=== PATIENT | female | born 1990 | race Hispanic/Latino ===

== ENCOUNTER → 2022-11-29 | Day surgery (SDC) | payer OTHER, SELFPAY ==
[~2022-11-29] MED LIST: Acetaminophen 500 MG TAB ONE; Iron Sucrose Complex 500 MG in Sodium Chloride 0.9% 250 ML 250 ML IVPB SCH
== END ==
LOC: CSHSDC/OP 08:51
PROVIDERS: ATTEND Obstetrics & Gynecology
DX: O99.019 Anemia complicating pregnancy, unspecified trimester (principal); D64.9 Anemia, unspecified
CPT/HCPCS: J1756; J7050

== ENCOUNTER 2022-12-12 08:40 | Inpatient (IN) | payer MEDICAID, OTHER ==
[2022-12-11 13:05] LABS: Hemoglobin 10.9 g/dL (12.0-15.5); Platelet Count 294 10x3/uL (150-450)
[2022-12-11 13:30] LABS: SARS-CoV-2 NAA Rapid Test Not Detected (NotDetected)
[2022-12-11 13:38] LABS: HBSAg Index 0.14 S/CO (0-0.99); Hep B Surf Ag Non-Reactive S/CO (NonReactive); Syphilis Antibody Nonreactive (Nonreactive); Syphilis Antibody Index 0.06 S/CO (<1.00 Non-Reactive)
[2022-12-12 11:18] VITALS: BMI 30.7
[2022-12-12] MEDS ORDERED: Fentanyl 100 MCG/2 ML VIAL SLOW IVP PRN (11:34)
[2022-12-12] MEDS ORDERED: Ondansetron PF 4 MG/2 ML Vial IVP PRN ×3 (11:34→15:21)
[2022-12-12] MEDS ORDERED: Promethazine HCl 25 MG SUPP PR PRN (11:34)
[2022-12-12] MEDS ORDERED: Naloxone HCl 0.4 mg/ml Vial IV PRN (11:34)
[2022-12-12] MEDS ORDERED: Meperidine HCl/PF 25 MG/ML VIAL SLOW IVP PRN (11:34)
[2022-12-12] MEDS ORDERED: Moisturizing Cream (Eucerin) 113 GM JAR TOP PRN (11:34)
[2022-12-12] MEDS ORDERED: Ondansetron HCl/PF 4 MG/2 ML Vial IVP PRN (11:34)
[2022-12-12] MEDS ORDERED: diphenhydrAMINE 50 MG/ML VIAL IVP PRN (11:34)
[2022-12-12] MEDS ORDERED: Naloxone HCl 0.4 mg/ml Vial IVP PRN ×2 (11:34)
[2022-12-12] MEDS ORDERED: Promethazine HCl 25 MG/ML VIAL IM PRN ×2 (11:34→11:41)
[2022-12-12] MEDS ORDERED: Tranexamic Acid 1,000 MG in Sodium Chloride 0.9% 250 ML 250 ML IVPB PRN (11:41)
[2022-12-12] MEDS ORDERED: hydrALAZINE 20 MG/ML VIAL SLOW IVP PRN ×2 (11:41→15:21)
[2022-12-12] MEDS ORDERED: Misoprostol 200 MCG TAB PR PRN (11:41)
[2022-12-12] MEDS ORDERED: Famotidine/PF 20 mg/2ml Vial SLOW IVP PRN (11:41)
[2022-12-12] MEDS ORDERED: Bicitra 30 ML UDCUP PO PRN (11:41)
[2022-12-12] MEDS ORDERED: Carboprost 250 MCG/ML AMP IM PRN (11:41)
[2022-12-12] MEDS ORDERED: NS w/ Oxytocin 30 units 500 ML IV SCH (11:45)
[2022-12-12] MEDS ORDERED: Lactated Ringer's 1,000 ML IV SCH (11:45)
[2022-12-12] MEDS ORDERED: CEFAZOLIN 2 GM in Sodium Chloride 0.9% 100 ML IVPB SCH (11:45)
[2022-12-12] MEDS ORDERED: Communication Order-Pharmacy FS SCH (11:45)
[2022-12-12] MEDS ORDERED: ePHEDrine Sulfate 50 MG/10 ML VIAL ONE (11:49)
[2022-12-12] MEDS ORDERED: PHENYLEPHRINE-NS 100 MCG/ML 10 ML SYRINGE ONE (11:49)
[2022-12-12] MEDS ORDERED: Morphine PF 10 MG/10 ML VIAL ONE (11:49)
[2022-12-12] MEDS ORDERED: Oxytocin 10 UNITS/ML VIAL ONE (11:49)
[2022-12-12] MEDS ORDERED: Ondansetron PF 4 MG/2 ML Vial ONE (11:49)
[2022-12-12] MEDS ORDERED: Phenylephrine 40 MG/NS 250 ML 250 ML ONE (11:54)
[2022-12-12] MEDS ORDERED: Ketorolac Tromethamine 30 MG/ML VIAL ONE (11:54)
[2022-12-12] MEDS ORDERED: PROPOFOL 0 ML ONE (12:49)
[2022-12-12] MEDS ORDERED: Fentanyl 100 MCG/2 ML VIAL ONE (13:25)
[2022-12-12] MEDS ORDERED: Lidocaine 1% PF 5 ML VIAL ONE (13:26)
[2022-12-12] MEDS ORDERED: diphenhydrAMINE 25 MG CAP PO PRN (15:21)
[2022-12-12] MEDS ORDERED: Boostrix 0.5 ML (Tdap) VIAL (>/=7 yrs of age) IM ONE (15:21)
[2022-12-12] MEDS ORDERED: Lanolin Ointment 7 GM TUBE TOP PRN (15:21)
[2022-12-12] MEDS ORDERED: Ketorolac Tromethamine 30 MG/ML VIAL IVP SCH (17:30)
[2022-12-12] MEDS ORDERED: Ketorolac Tromethamine 30 MG/ML VIAL IVP PRN (17:30)
[2022-12-12] MEDS: Docusate 100 MG CAP PO SCH (21:00)
[2022-12-12] MEDS: Ferrous Sulfate 325 MG TAB PO SCH (21:00)
[2022-12-12] MEDS ORDERED: HYDROcodone/Acetaminophen 5/325 mg Tablet PO PRN (23:45)
[2022-12-13 04:34] LABS: Hemoglobin 9.1 g/dL (12.0-15.5); Mean Corpuscular Hemoglobin 27.2 pg (27.0-33.0); Mean Corpuscular Volume 84.8 fl (81.6-98.3); Mean Platelet Volume 11.7 fl (7.4-10.4); Platelet Count 220 10x3/uL (150-450); Red Blood Cell (RBC) Count 3.35 10x6/uL (3.90-5.03); White Blood Cell (WBC) Count 13.3 10x3/uL (3.5-10.5)
[2022-12-13] MEDS: Prenatal Vitamin 1 TAB PO SCH (09:19)
[2022-12-13] MEDS: Docusate 100 MG CAP PO SCH ×2 (09:19→21:26)
[2022-12-13] MEDS: Ferrous Sulfate 325 MG TAB PO SCH ×2 (09:19→21:26)
[2022-12-13] MEDS: HYDROcodone/Acetaminophen 5/325 mg Tablet PO PRN (09:34)
[2022-12-13] MEDS: Ibuprofen 800 MG TAB PO SCH ×2 (13:57→21:26)
[2022-12-14] MEDS: Ibuprofen 800 MG TAB PO SCH ×2 (06:04→13:38)
[2022-12-14 07:57] VITALS: BP 103/57; TEMP 97.9
[2022-12-14] MEDS: HYDROcodone/Acetaminophen 5/325 mg Tablet PO PRN ×2 (08:13→13:39)
[2022-12-14] MEDS: Docusate 100 MG CAP PO SCH (08:13)
[2022-12-14] MEDS: Ferrous Sulfate 325 MG TAB PO SCH (08:14)
[2022-12-14] MEDS: Prenatal Vitamin 1 TAB PO SCH (08:14)
[2022-12-17] MEDS ORDERED: Ibuprofen 800 MG TAB PO SCH (22:00)
== END 2022-12-14 14:20 | disposition home or self-care (01) | DRG 787 ==
LOC: CSHLD 10:10 → CSHPED 17:06
PROVIDERS: ADMIT Family Medicine; ATTEND Family Medicine
PROC: 10D00Z1 Extraction of Products of Conception, Low, Open Approach (ICD-10-PCS; principal; 2022-12-12)
DX: O32.1XX0 Maternal care for breech presentation, not applicable or unspecified (principal); D62 Acute posthemorrhagic anemia; O34.211 Maternal care for low transverse scar from previous cesarean delivery; Z3A.39 39 weeks gestation of pregnancy; Z37.0 Single live birth; O69.81X0 Labor and delivery complicated by cord around neck, without compression, not applicable or unspecified; O99.03 Anemia complicating the puerperium; Z98.890 Other specified postprocedural states; Z79.899 Other long term (current) drug therapy
CPT/HCPCS: 36415; 51702; 85014; 85018; 85027; 85049; 86780; 86850; 86900; 86901; 87340; J1885; J2274; J2405; J2590; J2704; J3010; U0002